=== PATIENT | female | born 1950 | race Caucasian/White ===

== ENCOUNTER 2018-07-17 09:30 | Inpatient (IN) | payer OTHER ==
[~2018-07-17] VITALS: Ht 157.5 cm; Wt 71.2 kg
[2018-07-21] MEDS ORDERED: ULTRACET PO (09:21)
[2018-07-21] MEDS ORDERED: CELEBREX200MG PO (09:22)
== END 2018-07-21 11:07 | disposition home or self-care (01) | DRG 735 ==
LOC: O/R 07-20 06:00 → OB/GYN 07-20 06:00
PROVIDERS: Obstetrics & Gynecology Gynecologic Oncology
PROC: 0UT94ZZ Resection of Uterus, Percutaneous Endoscopic Approach (ICD-10-PCS; 2018-07-20)
PROC: 0UT24ZZ Resection of Bilateral Ovaries, Percutaneous Endoscopic Approach (ICD-10-PCS; 2018-07-20)
PROC: 0UT74ZZ Resection of Bilateral Fallopian Tubes, Percutaneous Endoscopic Approach (ICD-10-PCS; 2018-07-20)
PROC: 3E0F7GC Introduction of Other Therapeutic Substance into Respiratory Tract, Via Natural or Artificial Opening (ICD-10-PCS; 2018-07-20)
PROC: 07TC4ZZ Resection of Pelvis Lymphatic, Percutaneous Endoscopic Approach (ICD-10-PCS; principal; 2018-07-20 15:30)
DX: C54.1 Malignant neoplasm of endometrium (principal)